=== PATIENT | female | born 1960 | race Caucasian/White ===

== ENCOUNTER 2023-06-28 17:18 | Emergency (ER) | payer OTHER, SELFPAY ==
[2023-06-28 17:26] VITALS: BP 119/69; PULSE 61; RESP 16; TEMP 36.7; O2SAT 97; BMI 25.4
--- NOTE | 2023-06-28 17:34 | ED_ITS ---
HPI - Animal Bite General: Chief Complaint: Animal Bite Stated Complaint: dog bite left wrist Time Seen by Provider: 06/28/23 17:29 Source: patient Mode of arrival: ambulatory Limitations: no limitations History of Present Illness: Patient is a 63-year-old female presents to ED today for evaluation of a dog bite to her left wrist that she sustained just prior to arrival after her dogs were fighting and she got in the middle of them. She states all of her dogs are up-to-date on immunizations. Last tetanus she feels approximately 7 years ago. She denies numbness, tingling, loss of sensation, or inability to move any of her digits. complaint: animal bite Onset (ago): hour(s) Animal: dog Description of animal: household pet, immunizations UTD and appeared well Mechanism: bite Location - Extremities: Left: forearm (wrist) Context: animals fighting Associated symptoms: Reports no associated symptoms; Deny chills or fever(s) Treatments prior to arrival: wound dressing(s) Related Data: Patient tetanus UTD: Yes (7 years ago; will update today) Review of Systems Const: Denies: fever(s), chills or body aches Musc: Reports: extremity pain (L wrist dog bite); Denies: extremity swelling, joint pain, joint swelling, joint redness, joint warmth, joint stiffness or limited range of motion Skin/Breast: Reports: other (dog bite to L wrist) Neuro: Denies: numbness in extremities, weakness in extremities or sensory changes Physical Exam Const: COMMON NORMALS: no acute distress, average body habitus, patient oriented x3, no limitations, alert and well nourished Extremity: COMMON NORMALS: full ROM, capillary refill normal, no joint enlargement, no clubbing, cyanosis or edema and no pedal edema GENERAL: Yes normal exam except as noted LEFT UPPER EXTREMITY: Yes wrist (irregular dog bite dorsal L wrist; no tendon involvement ) Left wrist: Yes ROM (normal ) and Yes neurovascular exam (normal) Neuro: COMMON NORMALS: patient oriented x3, moves all extremities, no focal motor deficits and no sensory deficits noted SENSORIUM/ORIENTATION: Yes alert Procedures Laceration Laceration 1: Site: upper extremity (L wrist ) Side (If applicable): left Size (cm): 3.0 Description: irregular Depth: simple, single layer Local Anesthetic: lidocaine 1% Amount of anesthesia used (mL): 3.0 Pre-repair: wound explored and irrigated extensively Skin layer closed with: nylon Size (cm): 4-0 Number of sutures: 3 Technique: simple, interrupted Course Vital Signs: Vital signs: Vital Signs Temperature 98.0 F 06/28/23 17:26 Pulse Rate 61 06/28/23 17:26 Respiratory Rate 16 06/28/23 17:26 Blood Pressure 119/69 06/28/23 17:26 Pulse Oximetry 97 06/28/23 17:26 Oxygen Delivery Me thod Room Air 06/28/23 17:26 MDM - Animal Bite Medical Decision Making Patient here with a dog bite to her left wrist. This does not appear overly deep and I do not appreciate any tendon involvement. XR is negative. Last tetanus was approximately 7 years ago. Will update this today. Wound was copiously irrigated and loosely repaired as documented. Strict instructions given in regards to infection. She was given a dose of PO antibiotics prior to discharge I will place her on Augmentin at home. Differential Diagnosis Likely bite by animal and dog bite Medical Records I reviewed the patient's medical records. Lab Data Radiology Impressions Wrist X-Ray 06/28/23 17:37 IMPRESSION: Dorsal wrist soft tissue swelling without acute fracture or dislocation. All radiology interpretation(s) finalized by discharge Discharge Plan Discharge Patient Disposition: Home Clinical Impression: Dog bite Qualifiers: Encounter type: initial encounter Qualified Code(s): W54.0XXA - Bitten by dog, initial encounter Condition: Stable Prescriptions: New amoxicillin-pot clavulanate 875-125 mg tablet 1 tab PO BID Qty: 14 0RF Discharge Orders: Discharge ED (Routine); Ordered 06/28/23 Ordered By: Hawa Martinez Referrals: Emma Lay [Primary Care Provider] - Patient Instructions: Animal Bite (ED) Activity Restrictions/Additional Instructions: Keep wound/laceration clean with warm soap and water twice daily. Monitor for signs of infection such as redness, swelling, increased pain, or drainage. Please seek medical re-evaluation if these occur. If you received sutures today these will need to be removed (unless you were told by the provider that they are absorbable). The provider should have discussed with you the length of time until removal-7 DAYS. You may return to the emergency department for this service. Coding Level of Care Code ED Clinical Staff Pharmacist for Horacio Naik
--- NOTE | 2023-06-28 17:37 | XRR_ITS ---
PROCEDURE INFORMATION: Exam: XR Left Wrist Exam date and time: 06/28/2023 6:43 PM Age: 63 years old Clinical indication: Injury or trauma; Other: Dog bite; Swelling (edema); Wrist; Left TECHNIQUE: Imaging protocol: Radiologic exam of the left wrist. Views: 3 or more views. COMPARISON: No relevant prior studies available. FINDINGS: Bones/joints: No acute fracture or dislocation. No focal demineralization or erosion. Joint spacing and alignment are maintained. Soft tissues: Dorsal wrist soft tissue swelling. XR/XR wrist LT min 3V* [id number] IMPRESSION: Dorsal wrist soft tissue swelling without acute fracture or dislocation.
[2023-06-28] MEDS: tetanus-dipt-pertussis 0.5 mL SDV IM (18:19)
[2023-06-28] MEDS: amoxicillin-clav 875-125 mg Tablet 1 TAB PO (18:23)
== END 2023-06-28 18:27 | disposition home or self-care (01) ==
PROVIDERS: Emergency Provider Physician Assistant; PCP Registered Nurse
DX: S61.552A Open bite of left wrist, initial encounter (principal); W54.0XXA Bitten by dog, initial encounter; Z23 Encounter for immunization
CPT/HCPCS: 12002; 73110; 90471; 90715; 99283

== ENCOUNTER 2023-07-27 09:23 | Emergency (ER) | payer OTHER, SELFPAY ==
[2023-07-27 09:25] VITALS: BP 101/62; PULSE 60; RESP 16; TEMP 37.1; O2SAT 97; BMI 25.4
--- NOTE | 2023-07-27 09:28 | XR_ITS ---
WS: [id number] XR knee LT 3V* [id number] REASON FOR EXAM: trauma FINDINGS: The joint spaces of the knee are intact and well preserved. Subtle cortical deformity involving the posterior aspect of the lateral tibial plateau. Suspect occul t lateral tibial plateau fracture. Medial tibial plateau appears intact. No fracture identified. IMPRESSION: Possible occult lateral tibial plateau fracture as above. Recommend follow-up in 8 to 10 days.
--- NOTE | 2023-07-27 10:01 | CT_ITS ---
WS: [id number] NONCONTRAST CT LEFT KNEE TECHNIQUE: Noncontrast CT LEFT knee with coronal and sagittal reformatted images. CLINICAL INFORMATION: pain COMPARISON: 07/27/2023 radiograph DLP: 305.[address] scans at [facility] use at least one of these dose optimization techniques: automated e xposure control; mA and/or kV adjustment per patient size (includes targeted exams where dose is matc hed to clinical indication); or iterative reconstruction. FINDINGS: Comparison radiograph earlier today. Small suprapatellar effusion. Small lobulated popliteal cyst shanta suring 2.2 x 1.2 cm. Normal distal femur and femoral condyles. Normal fibula. Normal tibial metaphysi s. Nondisplaced hairline fracture involving the medial patella with superior and inferior extension. Pre patellar soft tissue edema. Small amount of cortical irregularity involving the lateral tibial platea u as seen on the radiograph although no definite fracture in this area. Tibial plateau is otherwise n ormal in appearance. IMPRESSION: 1. Acute nondisplaced vertical oriented fracture involving the medial aspect of the patella with sup erior to inferior extension. 2. Small suprapatellar effusion with prepatellar soft tissue edema. 3. Slight cortical irregularity involving the lateral tibial plateau as seen on the radiograph altho ugh no definite fractures in this area. If persistent pain recommend interval follow-up with CT to as sess for healing or MRI to assess for edema. 4. Small lobulated popliteal cyst. 5. No other suspicious findings.
--- NOTE | 2023-07-27 10:06 | ED_ITS ---
HPI - Extremity Problem General: Chief complaint: Extremity Injury, Lower Stated complaint: fell, knee pains Time Seen by Provider: 07/27/23 09:28 Source: patient Mode of arrival: ambulatory History of Present Illness: 63-year-old female who presents to the e mergency room with left knee pain she slipped and fell on the ice yesterday. No other injuries. No loss consciousness she has been walking using a cane since the incident. Complains of some swelling and pain in the left knee MD Complaint: joint pain Onset (ago): day(s) (1) Pain Consistency: constant Location: left and knee Quality: sharp Radiation: none Relieving factors: immobilization and elevation Exacerbating factors: range of motion, weight bearing, exertion and palpation Associated symptoms: Deny arthralgias, chest pain, fever(s), myalgias, rash or short of breath Review of Systems Const: Denies: fever(s), chills, fatigue or malaise Card: Denies: chest pain Resp: Denies: dyspnea GI: Denies: abdominal pain : Denies: dysuria, urinary frequency or urinary urgency Musc: Reports: joint pain; Denies: neck pain or back pain Skin/Breast: Denies: rash Physical Exam Const: COMMON NORMALS: no acute distress GENERAL APPEARANCE: cooperative and comfortable ORIENTATION/CONSCIOUSNESS: Yes awake, Yes oriented to person, Yes oriented to place and Yes oriented to time HENMT: COMMON NORMALS: normocephalic, atraumatic and hearing grossly normal bilaterally HEAD & SCALP: normocephalic and atraumatic Resp: COMMON NORMALS: normal respiratory effort, No retractions, No use of accessory muscles and clear to auscultation bilaterally AUSCULTATION: clear to auscultation bilaterally Cardio: COMMON NORMALS: regular rate, regular rhythm and No murmurs present (Cardio) RATE: regular rate RHYTHM: regular rhythm Extremity: COMMON NORMALS: normal to inspection, capillary refill normal, no clubbing, cyanosis or edema, no calf tenderness and no pedal edema OTHER: No ligamentous instability or laxity examination of the left knee with mild joint effusion and some prepatellar swelling. Neuro: SENSORIUM/ORIENTATION: Yes oriented to person, Yes oriented to place and Yes oriented to time Skin: COMMON NORMALS: no rashes or lesions noted GENERAL SKIN EXAM: no rashes or lesions noted Course Vital Signs: Vital signs: Vital Signs Temperature 98.7 F 07/27/23 09:25 Pulse Rate 60 07/27/23 09:25 Respiratory Rate 16 07/27/23 09:25 Blood Pressure 101/62 07/27/23 09:25 Pulse Oximetry 97 07/27/23 09:25 Oxygen Delivery Me thod Room Air 07/27/23 09:25 MDM - Extremity (Nontraumatic) Medical Decision Making Initial review the x-ray does not feel there is any fracture present radiologist question of possible tibial plateau fracture. CT was done to further evaluate no tibial plateau fracture however incidental finding of patella fracture nondisplaced that was not visualized on the plain film. Discussed with the patient we will place her in a knee immobilizer she will continue to use a cane for support advised if she is not in a knee immobilizer the leg is to be in full extension and remain full extension if she walks at all. She should not squat down or extend the leg forcefully. global marketing operations manager will make arrangements for follow-up with orthopedics Medical Records I reviewed the patient's medical records. Lab Data I reviewed the patient's lab results. All radiology interpretation(s) finalized by discharge Discharge Plan Discharge Patient Disposition: Home Clinical Impression: Fracture, patella Condition: Stable Prescriptions: No Action citalopram 40 mg tablet 40 mg PO BEDTIME ciprofloxacin HCl 250 mg tablet 250 mg PO BID Rx Instructions: for 7 days (rx filled 07/20/23) clonidine HCl 0.2 mg tablet 0.6 mg PO BEDTIME Calcium 500 500 mg calcium (1,250 mg) Tablet 500 mg PO DAILY oxybutynin chloride 5 mg tablet extended release 24hr 5 mg PO DAILY Rx Instructions: stop taking 07/22/23 (rx filled 07/19/23 90d/s) gabapentin 300 mg capsule 300 mg PO BID Discharge Orders: Discharge ED (Routine); Ordered 07/27/23 Ordered By: Jaxon Mendoza Referrals: Emma Lay [Primary Care Provider] - Discharge Diet: Usual diet Discharge Activity: Resume usual activity Patient Instructions: Opioid Safety, Pain Management Activity Restrictions/Additional Instructions: Thank you for choosing [facility] for your healthcare needs today. Please realize this is an emergency room and that we are providing you with a medical screening exam and this may not be complete and all inclusive of all the testing and or work up that you may need to determine your ailment or severity of your illness. It is very important that you follow up as instructed or that you return to the Emergency Department should you have concerns or if your condition changes or worsens in any way. global marketing operations manager will make arrangements for you to have follow-up with orthopedics for the patella fracture. You should wear the knee immobilizer and use crutches or a cane to assist with ambulation until released. 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
--- NOTE | 2023-07-27 10:49 | PC.PHAR ---
pt states she takes care of her own medications-pt states she has one tab of cipro left to take rx filled 07/20/23 7d/s 250mg bid for 7 days-pt states she stop taking her oxybutynin er 5mg daily tuesday07/22/23 states she doesnt think she needs it anymore ext shows last filled 07/19/23 90d/s-pt states she cant take macrobid 100mg bid ext shows last filled 07/18/23 7d/s pt states dr changed to cipro after she had many symptoms with macrobid
--- NOTE | 2023-07-27 16:41 | DCPLANNER ---
Message sent to Ortho for a follow up on a patellar fracture-
== END 2023-07-27 11:51 | disposition home or self-care (01) ==
PROVIDERS: Emergency Provider Family Medicine; PCP Registered Nurse
DX: S82.092A Other fracture of left patella, initial encounter for closed fracture (principal); W00.0XXA Fall on same level due to ice and snow, initial encounter
CPT/HCPCS: 73562; 73700; 99284

== ENCOUNTER → 2024-02-02 07:56 | Outpatient (BNVA) | payer MEDICARE, BC, SELFPAY | PROVIDERS: PCP Registered Nurse; Visit Provider Nurse Practitioner Family | DX: L57.0 Actinic keratosis (principal); D23.21 Other benign neoplasm of skin of right ear and external auricular canal; L82.1 Other seborrheic keratosis; L81.4 Other melanin hyperpigmentation; D16.9 Benign neoplasm of bone and articular cartilage, unspecified | CPT/HCPCS: 17000; 99203 ==

== ENCOUNTER → 2024-02-07 08:03 | Outpatient (BNVA) | payer MEDICARE, BC, SELFPAY | PROVIDERS: PCP Registered Nurse; Visit Provider Student in an Organized Health Care Education/Training Program | DX: M72.0 Palmar fascial fibromatosis [Dupuytren] (principal) | CPT/HCPCS: 73130; 99203 ==

== ENCOUNTER → 2024-02-23 08:34 | Outpatient (BNVA) | payer MEDICARE, BC, SELFPAY | PROVIDERS: PCP Registered Nurse; Referring Provider Registered Nurse; Visit Provider Surgery | DX: K92.2 Gastrointestinal hemorrhage, unspecified (principal); K59.04 Chronic idiopathic constipation; K21.9 Gastro-esophageal reflux disease without esophagitis; Z80.0 Family history of malignant neoplasm of digestive organs; Z90.49 Acquired absence of other specified parts of digestive tract | CPT/HCPCS: 99204 ==

== ENCOUNTER 2024-04-04 07:17 | Day surgery (SDC) | payer MEDICARE, SELFPAY ==
[2024-04-04 07:27] VITALS: BP 115/75; PULSE 70; RESP 18; TEMP 36.1; O2SAT 99; BMI 23.6
[2024-04-04 07:39] VITALS: BMI 23.6
[2024-04-04] MEDS: sodium chloride 0.9% 1,000 ML 30 ML IV (07:49)
--- NOTE | 2024-04-04 08:52 | PM.HP ---
Providers/Chief Complaint Primary Care Provider: Emma Lay Chief Complaint: K92.2, K21.9 History of Present Illness Diann Brown is a 64 year old female Review of Systems General: Reports: 10 or more systems reviewed and unremarkable except in HPI and below Medications/Allergies Home Medications Medication Instructions Recorded Confirmed Last Taken Type calcium carbonate 500 mg PO DAILY 07/27/23 04/04/24 04/03/24 History citalopram 40 mg tablet 40 mg PO BEDTIME 07/27/23 04/04/24 04/03/24 History gabapentin 300 mg capsule 300 mg PO BID 07/27/23 04/04/24 04/03/24 History estradiol 1 mg tablet 1 mg PO DAILY 02/23/24 04/04/24 04/03/24 History pantoprazole 40 mg tablet,delayed 40 mg PO BID 6 weeks #84 tabs 02/23/24 04/04/24 04/03/24 Rx release (Protonix) linaclotide 290 mcg capsule 290 mcg PO DAILY 30 days #30 caps 03/02/24 04/04/24 04/03/24 Rx (Linzess) Allergies Allergy/AdvReac Type Severity Reaction Status Date / Time nitrofurantoin Allergy ADR-Dizzine Verified 04/04/24 07:33 [From Macrobid] ss PFSH Acute PFSH: Social History Smoking and tobacco/nicotine status: never used tobacco/nicotine Vitals/I&O/Wt Last Vital Signs Temp 97.0 F L 04/04/24 07:27 Pulse 70 04/04/24 07:27 Resp 18 04/04/24 07:27 BP 115/75 04/04/24 07:27 Pulse Ox 99 04/04/24 07:27 O2 Del Method Room Air 04/04/24 07:27 Weight last 48 hrs Weight 138 lb Weight 138 lb A&P Assessment and plan (1) GI bleed: (2) Chronic idiopathic constipation: (3) GERD (gastroesophageal reflux disease): (4) Family history of colon cancer: Plan EGD and colonoscopy Attestations Medical Necessity Statement*: Home Coding Level of Care Code Acute Code for g Fwd Diagnoses GI bleed K92.2 Chronic idiopathic constipation K59.04 GERD (gastroesophageal reflux disease) K21.9 Family history of colon cancer Z80.0
[2024-04-04 09:05] VITALS: BP 100/68; PULSE 74; RESP 18; TEMP 36.3; O2SAT 97
--- NOTE | 2024-04-04 09:09 | ANE.PACU2 ---
Inpatient post-anesthesia follow up: Airway intact: Yes Vital signs: Temperature 97.0 F Pulse Rate 70 Respiratory Rate 18 Blood Pressure 115/75 Pulse Oximetry 99 Oxygen Delivery Me thod Room Air Oxygen Flow Rate Fraction of Inspir ed Oxygen Hydration adequate: Yes Nausea and vomiting: No Pain level: 1 Mental status: Baseline
[2024-04-04 09:15] VITALS: BP 95/65; PULSE 68; RESP 18; O2SAT 99
[2024-04-04 09:25] VITALS: BP 101/70; PULSE 64; RESP 18; O2SAT 100
[2024-04-04 09:35] VITALS: BP 113/71; PULSE 61; RESP 18; O2SAT 99
== END 2024-04-04 09:36 | disposition home or self-care (01) ==
PROVIDERS: PCP Registered Nurse; Visit Provider Surgery
PROC: 0DJ08ZZ Inspection of Upper Intestinal Tract, Via Natural or Artificial Opening Endoscopic (ICD-10-PCS; CPT 43235; principal; 2024-04-04 08:30)
PROC: 0DJD8ZZ Inspection of Lower Intestinal Tract, Via Natural or Artificial Opening Endoscopic (ICD-10-PCS; CPT 45330; 2024-04-04 08:30)
DX: K59.04 Chronic idiopathic constipation (principal); K21.9 Gastro-esophageal reflux disease without esophagitis; Z80.0 Family history of malignant neoplasm of digestive organs; K29.70 Gastritis, unspecified, without bleeding; K29.80 Duodenitis without bleeding
CPT/HCPCS: 43239; 45330; 88305; J2704; J7030

== ENCOUNTER → 2024-04-16 13:59 | Outpatient (BNVA) | payer MEDICARE, SELFPAY | PROVIDERS: PCP Registered Nurse; Visit Provider Surgery | DX: Z09 Encounter for follow-up examination after completed treatment for conditions other than malignant neoplasm (principal); K21.9 Gastro-esophageal reflux disease without esophagitis; K59.04 Chronic idiopathic constipation; K92.1 Melena | CPT/HCPCS: 99214 ==

== ENCOUNTER 2024-05-16 08:19 | Day surgery (SDC) | payer MEDICARE, SELFPAY ==
[2024-05-16 08:31] VITALS: BP 126/70; PULSE 58; RESP 16; TEMP 36.6; O2SAT 98; BMI 24.0
[2024-05-16] MEDS: sodium chloride 0.9% 1,000 ML 30 ML IV (08:41)
--- NOTE | 2024-05-16 09:51 | ANES.PREANE2 ---
Pre-Anesthetic Assessment Height/Weight: Height 1.63 m Weight 63.503 kg Temp Pulse Resp BP Pulse Ox O2 Del Method 97.9 F 58 L 16 126/70 98 Room Air 05/16/24 08:31 05/16/24 08:31 05/16/24 08:31 05/16/24 08:31 05/16/24 08:31 05/16/24 08:31 Preop Diagnosis: blood in stood Operation Date: 05/16/24 09:30 Proposed Procedures p Colonoscopy 85675, G0105, K92.1(Not Applicable) - Luiz King DO Familial anesthetic complications: none Was Beta Akiko taken within 24 hours: N/A Was Clonidine taken within 24 hours: N/A Last intake: Intake Last Liquid Date 05/15/24 Last Liquid Time 20:00 Last Solid Date 05/14/24 Last Solid Time 04:00 Social No alcohol and No tobacco Exam alert, oriented x 3, clear to auscultation bilaterally and regular rate & rhythm Airway Submandibular: within normal limits Cervical ROM: within normal limits Mallampati: Class II Dentition: full Comments: Comments: one upper tooth false History/ROS No significant history except as noted and No significant complaints Pulmonary None reported CV/HEM None reported None reported Hepatic None reported GI None reported Metabolic None reported Musc/skel None reported Neuropsych None reported Anesthetic Plan ASA status: 2 Anesthesia: MAC Risk of > 500 ml blood loss (7ml/kg in children): No Medications/Allergies Home Medications Medication Instructions Recorded Confirmed Last Taken Type calcium carbonate 500 mg PO DAILY 07/27/23 05/14/24 05/15/24 History citalopram 40 mg tablet 40 mg PO BEDTIME 07/27/23 05/14/24 05/15/24 History gabapentin 300 mg capsule 300 mg PO BID 07/27/23 05/14/24 05/15/24 History estradiol 1 mg tablet 1 mg PO DAILY 02/23/24 05/14/24 05/15/24 History pantoprazole 40 mg tablet,delayed 40 mg PO BID 6 weeks #84 tabs 02/23/24 05/14/24 05/15/24 Rx release (Protonix) linaclotide 290 mcg capsule 290 mcg PO DAILY 30 days #30 caps 03/02/24 05/14/24 05/15/24 Rx (Linzess) Allergies Allergy/AdvReac Type Severity Reaction Status Date / Time nitrofurantoin Allergy ADR-Dizzine Verified 04/16/24 14:08 [From Macrobid] ss Current Medications Generic Name Dose Route Start Last Admin Trade Name Freq PRN Reason Stop Dose Admin Sodium Chloride 1,000 mls @ 30 mls/hr 05/16/24 08:30 05/16/24 08:41 Sodium Chloride 0.9% IV 05/17/24 08:29 30 mls/hr .Q24H ROD Administration PFSH Anesthesia Medical History Family history of colon cancer Social History Smoking and tobacco/nicotine status: never used tobacco/nicotine Data Anesthesia Cardiac Studies: No Data to Display
--- NOTE | 2024-05-16 10:28 | W.PM.OPSUD ---
Surgery/Procedure H&P Update DATE OF PROCEDURE: May 16, 2024 DATE H&P PERFORMED: 04/16/24 H&P UPDATE INFORMATION: I have reviewed H&P completed within last 30 days, I have examined patient prior to procedure and No changes to prior documentation PREOP DIAGNOSIS: blood in stood PLANNED PROCEDURE: Operation Date: 05/16/24 09:30 Proposed Procedures p Colonoscopy 65394, G0105, K92.1(Not Applicable) - Luiz King DO
[2024-05-16 10:55] VITALS: BP 84/51; PULSE 58; RESP 18; TEMP 36.2; O2SAT 95
[2024-05-16 11:08] VITALS: BP 87/53; PULSE 61; RESP 16; O2SAT 97
[2024-05-16 11:26] VITALS: BP 106/66; PULSE 60; RESP 17; O2SAT 98
--- NOTE | 2024-05-16 11:47 | ANE.PACU2 ---
Inpatient post-anesthesia follow up: Airway intact: Yes Vital signs: Temperature 97.1 F Pulse Rate 60 Respiratory Rate 17 Blood Pressure 106/66 Pulse Oximetry 98 Oxygen Delivery Me thod Room Air Oxygen Flow Rate Fraction of Inspir ed Oxygen Hydration adequate: Yes Nausea and vomiting: No Pain level: 1 Mental status: Baseline
== END 2024-05-16 11:47 | disposition home or self-care (01) ==
PROVIDERS: PCP Registered Nurse; Visit Provider Surgery
PROC: 0DJD8ZZ Inspection of Lower Intestinal Tract, Via Natural or Artificial Opening Endoscopic (ICD-10-PCS; CPT 45378; principal; 2024-05-16 09:30)
DX: K92.1 Melena (principal); K59.04 Chronic idiopathic constipation; K21.9 Gastro-esophageal reflux disease without esophagitis; Z80.0 Family history of malignant neoplasm of digestive organs
CPT/HCPCS: 45378; J2704; J7030

== ENCOUNTER 2024-09-07 10:16 | Outpatient (CLI) | payer MEDICARE, SELFPAY ==
--- NOTE | 2024-09-07 10:22 | US_ITS ---
WS: [id number] US transvaginal [id number] HISTORY: POSTMENOPAUSAL BLEEDING COMPARISON: None available. Uterus: 7.1 cm x 5.3 cm x 3.4 cm. Uterus is retroverted. Small peripheral uterine phleboliths. There is a larger calcification along the anterior wall of the uterus measuring 1.7 x 1.8 x 0.7 cm which is probably a calcified fibroid. No additional solid masses or cysts identified. Endometrium: 0.3 cm. Endometrium is normal size. There is a cystic mass with a small soft tissue but nonvascular nodule towards the fundus of the endometrium. This complex nodule measures 0.7 x 0.5 x 0.7 cm. No solid endometrial mass or enlargement. Neither ovary is identified. No free fluid in the cul-de-sac. US/US transvaginal [id number] IMPRESSION: 1. There is a small complex cyst with internal nonvascular nodule measuring 0. 7 x 0.5 x 0.7 cm involving the endometrium towards the uterine fundus. This may be mildly dilated subendometrial gland or cyst. No solid mass identified or in creased vascularity. For further evaluation of postmenopausal bleeding biopsy m ay be necessary. By ultrasound no mass identified. 2. Neither ovary is identified. 3. Dense calcification in the anterior uterine wall is probably a fibroid joel uring 1.7 x 1.8 x 0.7 cm.
== END 2024-09-07 10:17 | disposition home or self-care (01) ==
PROVIDERS: PCP Registered Nurse; Visit Provider Registered Nurse
DX: N95.0 Postmenopausal bleeding (principal); N85.8 Other specified noninflammatory disorders of uterus; I87.8 Other specified disorders of veins
CPT/HCPCS: 76830

== ENCOUNTER → 2024-11-20 06:28 | Day surgery (SDC) | payer MEDICARE, SELFPAY ==
[2024-11-20] VITALS (10 sets, daily range): BP systolic 110–130; BP diastolic 67–73; PULSE 57–94; RESP 9–17; TEMP 36.2–36.5; O2SAT 92–98; BMI 24.9
[2024-11-20] MEDS: sodium chloride 0.9% 1,000 ML 30 ML IV (06:57)
--- NOTE | 2024-11-20 07:30 | ANES.PREANE2 ---
Pre-Anesthetic Assessment Height/Weight: Height 5 ft 4 in Weight 145 lb Temp Pulse Resp BP Pulse Ox O2 Del Method 97.5 F L 57 L 17 118/69 98 Room Air 11/20/24 06:45 11/20/24 06:45 11/20/24 06:45 11/20/24 06:45 11/20/24 06:45 11/20/24 06:48 Preop Diagnosis: postmenopausal bleeding; endometrial mass on ultrasound Operation Date: 11/20/24 08:10 Proposed Procedures p Hysteroscopy w/ Endometrial Sampling 12623, N95.0(Not Applicable) - Clarence Garcia MD s possible endometrial polypectomy(Not Applicable) - Clarence Garcia MD Was Beta Akiko taken within 24 hours: N/A Was Clonidine taken within 24 hours: N/A Last intake: Intake Last Liquid Date 11/19/24 Last Liquid Time 20:00 Last Solid Date 11/19/24 Last Solid Time 16:00 Social No alcohol and No tobacco Exam alert, oriented x 3, clear to auscultation bilaterally and regular rate & rhythm Airway Submandibular: within normal limits Cervical ROM: within normal limits Mallampati: Class II Dentition: false Anesthetic Plan ASA status: 2 Anesthesia: General Other: No prior issues with anesthesia NPO since yesterday evening History of GERD on Protonix Denies any cardiac or pulmonary issues METs greater than 4 Plan for general anesthesia Medications/Allergies Home Medications ?Medication ?Instructions ?Recorded ?Confirmed ?Last Taken ?Type calcium carbonate 500 mg PO DAILY 07/27/23 11/20/24 11/20/24 History citalopram 40 mg tablet 40 mg PO BEDTIME 07/27/23 11/19/24 11/19/24 History gabapentin 300 mg capsule 300 mg PO BID 07/27/23 11/19/24 11/19/24 History pantoprazole 40 mg tablet,delayed 40 mg PO BID 6 weeks #84 tabs 08/23/24 11/20/24 11/20/24 Rx release (Protonix) linaclotide 290 mcg capsule 290 mcg PO DAILY 30 days #30 caps 09/04/24 11/20/24 11/20/24 Rx (Linzess) Allergies Allergy/AdvReac Type Severity Reaction Status Date / Time nitrofurantoin (From Allergy ADR-Dizzine Verified 10/29/24 09:47 Macrobid) ss Current Medications Generic Name Dose Route Start Last Admin Trade Name Freq PRN Reason Stop Dose Admin Sodium Chloride 1,000 mls @ 30 mls/hr 11/20/24 06:45 11/20/24 06:57 Sodium Chloride 0.9% IV 11/21/24 06:44 30 mls/hr .Q24H ROD Administration PFSH Anesthesia Medical History (Updated 10/29/24 @ 21:21 by Clarence Garcia MD) Family history of colon cancer Family History (Updated 10/29/24 @ 14:20 by Michelle Avelar RN) Grandmother Heart disease Grandfather Uterine cancer Heart disease Denies family history of Colon cancer Ovarian cancer Diabetes Breast cancer Hypertension Thyroid disease Stroke Social History Smoking and tobacco/nicotine status: never used tobacco/nicotine
--- NOTE | 2024-11-20 08:48 | W.PM.OPSUD ---
Surgery/Procedure H&P Update DATE OF PROCEDURE: November 20, 2024 DATE H&P PERFORMED: 10/29/24 H&P UPDATE INFORMATION: I have reviewed H&P completed within last 30 days, I have examined patient prior to procedure and No changes to prior documentation PREOP DIAGNOSIS: postmenopausal bleeding; endometrial mass on ultrasound PLANNED PROCEDURE: Operation Date: 11/20/24 08:10 Proposed Procedures p Hysteroscopy w/ Endometrial Sampling 26464, N95.0(Not Applicable) - Clarence Garcia MD s possible endometrial polypectomy(Not Applicable) - Clarence Garcia MD
--- NOTE | 2024-11-20 10:05 | PM.OP ---
Operative Report Date of procedure: November 20, 2024 Pre-op diagnosis: abnormal uterine bleeding Post-op diagnosis: same Post-op findings: normal endometrial cavity No polyps / fibroids Minimal endometrial tissue Procedure done: hysteroscopy Curettage of uterus Implants: none Specimens removed/disposition: endometrial curettings Surgeon: Clarence Garcia MD Anesthesia: MAC Estimated blood loss (mL): 0 Complications: none Findings: normal endometrial cavity No polyps / fibroids Minimal endometrial tissue Condition: stable Disposition: PACU Brief History: 64 y.o. with postmenopausal bleeding Procedure: Informed consent signed. Patient was taken to the operating room. Anesthesia was induced. Patient was placed in dorsolithotomy position, prepped and draped for hysteroscopy. A bivalve speculum was placed in the vagina. The anterior lip of the cervix was grasped with a sharp-toothed tenaculum. The cervix was serially dilated with Hegar dilators. . A hysteroscope was placed into the endometrial cavity. The endometrial cavity was seen to be normal. There were no polyps or fibroids. There was a minimal amount of endometrial tissue. The hysteroscope was then removed. Endometrial curettage was done with a sharp curette. Endometrial tissue was sent to pathology. The sharp-toothed tenaculum was removed. There was no bleeding from the endometrial cavity or cervix. The patient was then placed supine and awakened and taken to the PACU. Postop condition: stable EBL: none Sponge and instruments counts were normal x 2 Complications: none
--- NOTE | 2024-11-20 10:33 | ANE.PACU2 ---
Inpatient post-anesthesia follow up: Airway intact: Yes Vital signs: Temperature 97.7 F Pulse Rate 73 Respiratory Rate 16 Blood Pressure 130/73 Pulse Oximetry 98 Oxygen Delivery Me thod Room Air Oxygen Flow Rate Fraction of Inspir ed Oxygen Hydration adequate: Yes Nausea and vomiting: No Pain level: 1 Mental status: Baseline
== END | disposition home or self-care (01) ==
PROVIDERS: PCP Registered Nurse; Visit Provider Obstetrics & Gynecology
PROC: 0UJD8ZZ Inspection of Uterus and Cervix, Via Natural or Artificial Opening Endoscopic (ICD-10-PCS; CPT 58555; principal; 2024-11-20 08:10)
DX: N93.9 Abnormal uterine and vaginal bleeding, unspecified (principal); K21.9 Gastro-esophageal reflux disease without esophagitis
CPT/HCPCS: 58558; 88305; J1100; J2405; J2704; J3010; J7030; J9999

== ENCOUNTER 2024-12-01 13:12 | Emergency (ER) | payer MEDICARE, SELFPAY ==
[2024-12-01 13:33] VITALS: BP 167/88; PULSE 64; RESP 16; TEMP 36.8; O2SAT 100
--- NOTE | 2024-12-01 13:44 | XRR_ITS ---
PROCEDURE INFORMATION: Exam: XR Left Wrist Exam date and time: 12/01/2024 1:50 PM Age: 64 years old Clinical indication: Left; Lt wrist pain post foosh TECHNIQUE: Imaging protocol: Radiologic exam of the left wrist. Views: 3 or more views. COMPARISON: No relevant prior studies available. FINDINGS: Bones/joints: A nondisplaced fracture seen within the distal metaphysis of the left radius with lateral view demonstrating cortical deformity along the dorsal margin and AP view demonstrating mild cortical buckling along the side opposite of the ulna. An avulsion fracture of the ulnar styloid is also seen. Wrist joint appears maintained. No malalignment. Soft tissues: Mild soft tissue swelling. XR/XR wrist LT min 3V* [id number] IMPRESSION: Nondisplaced fracture distal metaphysis left radius as noted above, along with avulsion fracture of the ulnar styloid.
[2024-12-01] MEDS: HYDROcodone-acetaminophen 5-325 mg Tablet 1 TAB PO (14:25)
[2024-12-01 14:26] VITALS: PULSE 62; O2SAT 100
--- NOTE | 2024-12-01 15:12 | ED_ITS ---
HPI - Extremity Problem General: Chief complaint: Extremity Injury, Upper Stated complaint: injury to lft wrist Time Seen by Provider: 12/01/24 13:25 History of Present Illness: 64-year-old female patient presents to [facility] emergency department complaining of left wrist pain. Patient states she started to fall and caught herself on her wrist. Patient states she had immediate pain. Patient denies any other trauma or injury. Patient states she did not fall the way to the ground patient did not strike her head patient is not anticoagulated. Related Data Home Medications ?Medication ?Instructions ?Recorded ?Confirmed calcium carbonate 500 mg PO DAILY 07/27/23 citalopram 40 mg tablet 40 mg PO BEDTIME 07/27/23 gabapentin 300 mg capsule 300 mg PO BID 07/27/2312/01 clonidine HCl 0.2 mg tablet 0.2 mg PO TID 12/01/24 Previous Rx's ?Medication ?Instructions ?Recorded pantoprazole 40 mg tablet,delayed 40 mg PO BID 6 weeks #84 tabs 08/23/24 release (Protonix) linaclotide 290 mcg capsule 290 mcg PO DAILY 30 days # 30 caps 09/04/24 (Linzess) hydrocodone 5 mg-acetaminophen 325 1 tab PO Q4H PRN pa in #30 tabs 12/01/24 mg tablet Allergies Allergy/AdvReac Type Severity Reaction Status Date / Time nitrofurantoin (From Allergy ADR-Dizzine Verified 10/29/24 09:47 Macrobid) ss Review of Systems General: Reports: 10 or more systems reviewed and unremarkable except in HPI and below PFSH ED PFSH: Medical History (Updated 12/01/24 @ 15:38 by Serenity Goins NP) Family history of colon cancer Family History (Updated 10/29/24 @ 14:20 by Michelle Avelar RN) Grandmother Heart disease Grandfather Uterine cancer Heart disease Denies family history of Colon cancer Ovarian cancer Diabetes Breast cancer Hypertension Thyroid disease Stroke Social History Smoking and tobacco/nicotine status: never used tobacco/nicotine Physical Exam Const: COMMON NORMALS: no acute distress, average body habitus, patient oriented x3 and no limitations HENMT: COMMON NORMALS: normocephalic and atraumatic HEAD & SCALP: normocephalic and atraumatic Neck/C-Spine: COMMON NORMALS: full ROM and no meningeal signs GI: COMMON NORMALS: Normal to inspection, nondistended, normoactive bowel sounds present, Soft to palpation and non-tender PALPATION: Yes Soft to palpation : COMMON NORMALS: Yes no CVA tenderness and Yes normal external appearance BLADDER/KIDNEY EXAM: Yes no CVA tenderness Back/Pelvis: COMMON NORMALS: no CVA tenderness Extremity: NARRATIVE EXTREMITY EXAM: Left wrist pain with range of motion. Patient is neurovascularly intact dis tally. Neuro: COMMON NORMALS: patient oriented x3 MENINGEAL SIGNS: Yes no meningeal signs Course Vital Signs: Vital signs: Vital Signs Temperature 98.2 F 12/01/24 13:33 Pulse Rate 81 12/01/24 16:07 Respiratory Rate 16 12/01/24 13:33 Blood Pressure 158/76 12/01/24 16:07 Pulse Oximetry 99 12/01/24 16:07 Oxygen Delivery Me thod Room Air 12/01/24 14:26 MDM - Extremity (Nontraumatic) Medical Decision Making Patient is well-appearing nontoxic and in no acute distress. Patient is not anticoagulated and did not hit her head patient did not have any loss of consciousness. X-ray was obtained for further evaluation of her left wrist pain. Upon x-ray findings there is a radial nondisplaced fracture. I will go ahead and place patient in a splint I will have her follow-up with Ortho and I will send her home with a short course of pain meds return precautions have been advised. Follow-up has been advised as well as home care. Patient remains neurovascularly intact distally pre and post splint application. Lab Data Radiology Impressions Wrist X-Ray 12/01/24 13:44 IMPRESSION: Nondisplaced fracture distal metaphysis left radius as noted above, along with avulsion fracture of the ulnar styloid. All radiology interpretation(s) finalized by discharge Discharge Plan Discharge Patient Disposition: Home Clinical Impression: Wrist fracture Qualifiers: Encounter type: initial encounter Fracture type: closed Laterality: left Qualified Code(s): S62.102A - Fracture of unspecified carpal bone, left wrist, initial encounter for closed fracture Condition: Stable Prescriptions: New hydrocodone-acetaminophen 5-325 mg tablet 1 tab PO Q4H PRN (Reason: pain) Qty: 30 0RF No Action pantoprazole [Protonix] 40 mg tablet,delayed release (DR/EC) 40 mg PO BID 42 Days Qty: 84 1RF Linzess 290 mcg capsule 290 mcg PO DAILY 30 Days Qty: 30 1RF citalopram 40 mg tablet 40 mg PO BEDTIME calcium carbonate 500 mg calcium (1,250 mg) Tablet 500 mg PO DAILY gabapentin 300 mg capsule 300 mg PO BID clonidine HCl 0.2 mg tablet 0.2 mg PO TID Discharge Orders: Discharge ED (Routine); Ordered 12/01/24 Ordered By: Serenity Goins Referrals: Emma Lay [Primary Care Provider, Family Practice] Discharge Diet: Advance as tolerated Discharge Activity: Limit activity as instructed Patient Instructions: Wrist Fracture in Adults (ED), Opioid Safety, Pain Management Activity Restrictions/Additional Instructions: Please follow up with Ortho. We will call you with follow up info Return to ER with any worsening of symptoms or concerns Take meds as prescribed. Please do not take while driving or operating [employer] Stand Alone Forms: Work/School Release Print Language: Kiswahili Coding Level of Care Code ED [employer] Operator for Horacio Naik
[2024-12-01 16:07] VITALS: BP 158/76; PULSE 81; O2SAT 99
== END 2024-12-01 16:08 | disposition home or self-care (01) ==
PROVIDERS: Emergency Provider Registered Nurse; PCP Registered Nurse
DX: S62.102A Fracture of unspecified carpal bone, left wrist, initial encounter for closed fracture (principal); W19.XXXA Unspecified fall, initial encounter
CPT/HCPCS: 29125; 73110; 99283; J9999

== ENCOUNTER → 2024-12-10 08:16 | Outpatient (BNVA) | payer MEDICARE, SELFPAY | PROVIDERS: PCP Registered Nurse; Visit Provider Physician Assistant | DX: S62.102A Fracture of unspecified carpal bone, left wrist, initial encounter for closed fracture (principal); W10.8XXA Fall (on) (from) other stairs and steps, initial encounter | CPT/HCPCS: 25600; 73110; 97760; 99203; L3982 ==

== ENCOUNTER 2024-12-10 10:39 | Outpatient (CLI) | payer MEDICARE, SELFPAY | END 2024-12-10 10:40 | disposition home or self-care (01) | LOC: SPT 10:39 | PROVIDERS: PCP Registered Nurse; Visit Provider Physician Assistant | DX: S62.102A Fracture of unspecified carpal bone, left wrist, initial encounter for closed fracture (principal); W10.8XXA Fall (on) (from) other stairs and steps, initial encounter | CPT/HCPCS: 25600; 97760; 99203; L3982 ==

== ENCOUNTER 2024-12-14 15:19 | Outpatient (CLI) | payer MEDICARE, SELFPAY ==
--- NOTE | 2024-12-14 15:31 | XR_ITS ---
WS: [id number] SCREENING DEXA SCAN [facility] CLINICAL INFORMATION: POSTMENOPAUSAL COMPARISON: None. FINDINGS: The L1-L4 bone mineral density measures 1.000 g/cm2. This corresponds to a T score score of -1.5 and Z score of 0.0. RIGHT femoral neck bone mineral density measures 0.782. This corresponds to a T score of -1.8 and Z score of -0.6. XR/XR DEXA axial skeleton* 15315 IMPRESSION: Osteopenia lumbar spine. Osteopenia RIGHT femoral neck. Patient's FRAX calculated 10 year probability for major osteoporotic fracture i s 17.1% and osteoporotic hip fracture is 2.5%.
== END 2024-12-14 15:20 | disposition home or self-care (01) ==
LOC: RAD 15:21
PROVIDERS: PCP Registered Nurse; Visit Provider Registered Nurse
DX: Z13.820 Encounter for screening for osteoporosis (principal); Z78.0 Asymptomatic menopausal state; M85.88 Other specified disorders of bone density and structure, other site; M85.9 Disorder of bone density and structure, unspecified
CPT/HCPCS: 77080

== ENCOUNTER → 2024-12-17 09:43 | Outpatient (BNVA) | payer MEDICARE, SELFPAY | PROVIDERS: PCP Registered Nurse; Visit Provider Physician Assistant | DX: S62.102A Fracture of unspecified carpal bone, left wrist, initial encounter for closed fracture (principal); X58.XXXA Exposure to other specified factors, initial encounter | CPT/HCPCS: 73110; 99213 ==

== ENCOUNTER → 2024-12-25 09:40 | Outpatient (BNVA) | payer MEDICARE, SELFPAY | PROVIDERS: PCP Registered Nurse; Visit Provider Physician Assistant | DX: S62.102A Fracture of unspecified carpal bone, left wrist, initial encounter for closed fracture (principal); X58.XXXA Exposure to other specified factors, initial encounter | CPT/HCPCS: 73110; 99213 ==

== ENCOUNTER → 2025-03-26 11:11 | Outpatient (BNVA) | payer MEDICARE, SELFPAY | PROVIDERS: PCP Registered Nurse; Visit Provider Nurse Practitioner Family | DX: H01.131 Eczematous dermatitis of right upper eyelid (principal); L81.4 Other melanin hyperpigmentation; L57.0 Actinic keratosis | CPT/HCPCS: 17000; 99214 ==

== ENCOUNTER → 2025-05-07 10:12 | Outpatient (BNVA) | payer MEDICARE, SELFPAY | PROVIDERS: PCP Registered Nurse; Visit Provider Nurse Practitioner Family | DX: H01.131 Eczematous dermatitis of right upper eyelid (principal) | CPT/HCPCS: 99214 ==